=== PATIENT | female | born 1960 | race Caucasian/White ===

== ENCOUNTER 2016-10-24 10:05 | Emergency (ER) | payer BC ==
[2016-10-24 10:10] VITALS: BP 120/77; PULSE 73; RESP 16; TEMP 97.7; O2SAT 93
--- NOTE | 2016-10-24 10:58 | EDPHY ---
H & P Smoking Status: Never smoked Time Seen by Provider: 10/24/16 10:21 HPI/ROS: CHIEF COMPLAINT: Right ankle injury HISTORY OF PRESENT ILLNESS: 55-year-old female presents to the emergency department by private vehicle with injury to her right ankle. Patient was walking down some steps last evening around 10:00 p.m. and then fell injuring her right ankle. She also hit her left knee and sustained abrasions to her left hand. She did not hit her head or lose consciousness. Denies neck or back pain. Denies chest pain or difficulty breathing. Denies abdominal pain. Denies numbness or tingling in her toes or in her fingers. She is not able to put weight on her right ankle secondary to pain. She is able to bear weight on the left side. REVIEW OF SYSTEMS: Constitutional: No fever, no chills. Eyes: No double or blurry vision. ENT: No sore throat. Respiratory: No cough, no shortness of breath. Cardiac: No chest pain. Gastrointestinal: No abdominal pain, vomiting or diarrhea. Genitourinary: No dysuria. Musculoskeletal: No neck or back pain. Skin: No rashes. Neurological: No headache. (Natalia Hassan) Past Medical/Surgical History: Back surgery (Sonya,Natalia M) Social History: , from [place] (Sonya,Natalia Montemayor) Physical Exam: General Appearance: Alert, no distress. No physical signs of trauma to her head. She is mentating normally and answering questions appropriately. Eyes: Pupils equal and round. Extraocular motions are all intact. ENT: Mouth: Mucous membranes moist. Respiratory: No wheezing, rhonchi, or rales, lungs are clear to auscultation. Cardiovascular: Regular rate and rhythm. Gastrointestinal: Abdomen is soft and nontender, no masses, no rebound or guarding, bowel sounds normal. Neurological: Alert and oriented x 3, cranial nerves II through XII grossly intact Skin: Superficial abrasion noted to the palm of the left hand. Warm and dry, no rashes. Musculoskeletal: Nontender to palpate along the cervical, thoracic or lumbar spine. Neck is supple. Extremities: Swelling, ecchymosis and superficial abrasion to the anterior aspect of the left knee. Full flexion and extension of the left knee. Left ankle is stable. Right foot reveals swelling to the dorsal lateral aspect of the foot. Superficial abrasion noted. Mild diffuse pain with palpation to the dorsal aspect of her right foot. Nontender to palpate over the lateral medial malleolus on the right ankle. Calf is nontender. Psychiatric: Patient is oriented X 3, there is no agitation. (Natalia Hassan) Constitutional: Initial Vital Signs Temperature (C) 36.5 C 10/24/16 10:07 Heart Rate 73 10/24/16 10:07 Respiratory Rate 16 10/24/16 10:07 Blood Pressure 120/77 10/24/16 10:07 O2 Sat (%) 93 10/24/16 10:07 O2 Delivery Mode Room Air Allergies/Adverse Reactions: No Known Allergies Allergy (Unverified 10/24/16 10:07) Home Medications: Medication Instructions Recorded NK [No Known Home Meds] 10/24/16 Medical Decision Making - Diagnostics Imaging: I viewed and interpreted images myself Procedures: Patient was placed in Rubin boot and examined post application in good placement with normal LVN. (Natalia Hassan) ED Course/Re-evaluation: 55-year-old female presents with right ankle injury. X-rays reveal avulsion fracture to the dorsal aspect of her right foot involving navicular and talus. She was placed in Rubin boot and given orthopedic referral. She is traveling back to [place] tomorrow and will follow up with orthopedic physician later this week. Was instructed to use anti-inflammatory such as ibuprofen. Patient was given crutches and will be nonweightbearing. (Natalia Hassan) I did not see this patient while she was in the emergency department. However her care was discussed with the PA while the patient was in the department. I agree with treatment plan and management (Marvin Zabala) Differential Diagnosis: Including but not limited to fracture, dislocation, contusion, sprain (Natalia Hassan) - Data Points Medications Given: Discontinued Medications Ibuprofen (Motrin) 600 mg PO EDNOW ONE Stop: 10/24/16 11:03 Last Admin: 10/24/16 11:04 Dose: 600 mg Departure - Departure Disposition: Home, Routine, Self-Care Clinical Impression: Closed right ankle fracture Condition: Good Instructions: Ankle Fracture (ED) Additional Instructions: Rubin boot for comfort and support. Nonweightbearing, use crutches until follow-up with orthopedic surgeon this week. Ibuprofen 600 mg every 8 hours as needed for pain. Referrals: Marcial Gentile MD [Medical Doctor] - 2-3 days, call for appt. (Orthopedic surgeon on-call)
[2016-10-24] MEDS ORDERED: IBUPROFEN 600 MG TAB PO ONE (11:02)
== END 2016-10-24 11:07 | disposition home or self-care (01) ==
DX: S92.151A Displaced avulsion fracture (chip fracture) of right talus, initial encounter for closed fracture (principal); W10.9XXA Fall (on) (from) unspecified stairs and steps, initial encounter; Y99.8 Other external cause status; Y93.01 Activity, walking, marching and hiking
CPT/HCPCS: L4386